=== PATIENT | male | born 1985 | race American Indian/Alaskan Native ===

== ENCOUNTER 2017-05-25 21:39 | Emergency (ER) | payer SELFPAY | END 2017-05-25 22:00 | disposition left against medical advice (07) | LOC: ED 21:39 | DX: R50.9 Fever, unspecified (principal); Z53.21 Procedure and treatment not carried out due to patient leaving prior to being seen by health care provider ==

== ENCOUNTER 2019-11-23 09:09 | Emergency (ER) | payer OTHER ==
[2019-11-23] MEDS ORDERED: IBUPROFEN 600 MG TAB PO ONE (09:26)
[2019-11-23] MEDS ORDERED: TETANUS,DIPH,PERTUSS(ACELL) VACCINE 0.5 ML SYRINGE IM ONE (09:26)
[2019-11-23] MEDS ORDERED: NEOMY 3.5 MG/BACIT 400 UNITS/POLY B 5000 UNITS/GM OINT PACKET TP ONE (09:26)
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
[2019-11-23] MEDS ORDERED: AMOXICILLIN/K CLAV 500/125MG TAB PO ONE (09:27)
[2019-11-23 11:05] VITALS: BP 173/108
== END 2019-11-23 10:09 | disposition home or self-care (01) ==
LOC: ED 09:09
DX: S00.471A Other superficial bite of right ear, initial encounter (principal); I10 Essential (primary) hypertension; F17.200 Nicotine dependence, unspecified, uncomplicated; Z79.2 Long term (current) use of antibiotics; Y04.1XXA Assault by human bite, initial encounter; Y93.89 Activity, other specified; Y92.009 Unspecified place in unspecified non-institutional (private) residence as the place of occurrence of the external cause; Y99.8 Other external cause status
CPT/HCPCS: 90471; 90715; 99282; A6250

== ENCOUNTER 2022-03-14 12:47 | Emergency (ER) | payer OTHER ==
--- NOTE | 2022-03-14 13:50 | XRay Report ---
RIGHT FOREARM 2 VIEWS RIGHT HAND 2 VIEWS INDICATION: Right arm and hand swelling. COMPARISON: No relevant prior imaging study available. FINDINGS: Right forearm: No significant skeletal abnormality. No focal soft tissue swelling or foreign bodies. Right hand: There is fracture at the base of the ring finger metacarpal. No additional fractures are seen. No significant degenerative changes. IMPRESSION: 1. Displaced fracture at the base of the ring finger metacarpal. CT would be useful to better charact erize this fracture and evaluate for potential associated dislocation at the fourth CMC joint. Signer Name: Brodie Todd MD Signed: 03/14/2022 1:46 PM Workstation Name: [id number]
[2022-03-14] MEDS ORDERED: oxyCODONE /ACETAMINOPHEN 5-325MG TAB PO ONE (17:04)
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
--- NOTE | 2022-03-14 17:56 | Cat Scan Report ---
CT RIGHT HAND WITHOUT CONTRAST INDICATION / CLINICAL INFORMATION: metacarpal fracture displaced. TECHNIQUE: All CT scans at this location are performed using CT dose reduction for ALARA by means of automated exposure control. COMPARISON: Radiographs earlier today. FINDINGS: BONES: There is a comminuted intra-articular fracture at the base of the ring finger metacarpal with displaced fracture fragments and volar and dorsally. In addition, the metacarpal is subluxed posterio rly with respect to the trapezium (as seen on sagittal image 31). No additional fractures are seen. N o osseous lesion. MUSCLES / TENDONS: No significant abnormality. SOFT TISSUES: No significant abnormality. VISUALIZED JOINTS: No significant abnormality. ADDITIONAL FINDINGS: None. IMPRESSION: 1. Fracture dislocation at the base of the ring finger metacarpal. Signer Name: Brodie Todd MD Signed: 03/14/2022 5:52 PM Workstation Name: [id number]
[2022-03-14 18:29] VITALS: BP 133/85
== END 2022-03-14 18:28 | disposition home or self-care (01) ==
LOC: ED 12:47
DX: S62.309A Unspecified fracture of unspecified metacarpal bone, initial encounter for closed fracture (principal); I10 Essential (primary) hypertension; F17.200 Nicotine dependence, unspecified, uncomplicated; X58.XXXA Exposure to other specified factors, initial encounter; Y93.9 Activity, unspecified; Y92.89 Other specified places as the place of occurrence of the external cause; Y99.8 Other external cause status
CPT/HCPCS: 99284